=== PATIENT | male | born 1985 | race Caucasian/White ===

== ENCOUNTER 2019-01-12 11:45 | Emergency (ER) | payer OTHER ==
[~2019-01-12] VITALS: Ht 190.5 cm; Wt 127.3 kg
[2019-01-12 11:50] VITALS: TEMP 97.7
[2019-01-12 12:29] LABS: BASO # 0.1 (0.0-0.2); BASO % 1.1 % (0.0-2.0); EOS # 0.2 (0.0-0.7); EOS % 2.5 % (0-4.0); GRAN # 3.4 (1.4-6.5); GRAN % 48.4 % (42.2-75.2); LYMPH # 2.4 (1.2-3.4); LYMPH % 34.5 % (20.0-51.0); MEAN CELL VOLUME 84 fl (80.0-100.0); MEAN CORPUSCULAR HGB CONC 34 g/dl (33.0-37.0); MEAN PLATELET VOLUME 8.9 fl (7.4-10.4); MONO # 0.9 (0.1-0.6); MONO % 13.1 % (1.7-9.3); PLATELET COUNT 208 K/mm3 (130-400); RED BLOOD COUNT 6.26 M/mm3 (4.20-5.60); REDCELL DISTRIBUTION WIDTH-CV 12.2 % (11.5-14.5)
[2019-01-12 12:35] LABS: HEMATOCRIT 52.6 % (42.0-52.0); HEMOGLOBIN 18.1 g/dl (13.5-18.0); MEAN CORPUSCULAR HEMOGLOBIN 29 pg (27.0-31.0)
[2019-01-12 12:41] LABS: ALANINE AMINOTRANSFERASE 24 U/L (21-72); ALBUMIN 4.5 gm/dL (3.5-5.0); ALKALINE PHOSPHATASE 85 U/L (50-136); ANION GAP 13 mmol/L (7-16); AST,SGOT 26 U/L (15-37); BILIRUBIN,TOTAL 0.5 mg/dL (0.0-1.0); BLOOD UREA NITROGEN 17 mg/dL (9-20); C-REACTIVE PROTEIN 0.6 mg/dL (0.0-0.9); CALCIUM 9.2 mg/dL (8.4-10.2); CARBON DIOXIDE 21 mmol/L (22-30); CHLORIDE 105 mmol/L (98-107); CREATININE, serum 1.02 (0.66-1.25); GLUCOSE 95 mg/dL (74-106); LIPASE 65 U/L (23-300); POTASSIUM 3.6 mmol/L (3.4-5.0); SODIUM 139 mmol/L (137-145); TOTAL PROTEIN 7.6 gm/dL (6.4-8.2)
[2019-01-12] MEDS ORDERED: BUSPAR5 MG PO (12:46)
[2019-01-12] MEDS ORDERED: ZYBAN150 M1 (12:46)
[2019-01-12] MEDS ORDERED: LYRICA 75MG CAP75 MG PO (12:47)
[2019-01-12] MEDS ORDERED: CYMBALTA 60MG60 MG PO (12:47)
[2019-01-12] MEDS ORDERED: PROTONIX 40MG T40 MG PO (12:48)
[2019-01-12] MEDS ORDERED: DESYREL 100MG100 MG PO (12:48)
[2019-01-12] MEDS ORDERED: REGLAN 10MG10 MG/TAB PO (12:48)
[2019-01-12] MEDS ORDERED: HYTRIN 2MG CAPSU2 MG PO (12:49)
[2019-01-12] MEDS ORDERED: PRINIVIL20 MG PO (12:49)
[2019-01-12] MEDS ORDERED: ULTRAM 50MG TAB50 MG PO ×2 (12:50→13:08)
[2019-01-12 12:53] LABS: TROPONIN-I < 0.012 ng/mL (0.000-0.035)
[2019-01-12] MEDS ORDERED: ZOFRAN ODT4 MG PO (13:03)
[2019-01-12] MEDS ORDERED: ZESTRIL 20MG TA20 MG PO (13:08)
[2019-01-12 13:15] LABS: SALICYLATE 6.1 mg/dL
[2019-01-12 13:16] LABS: ACETAMINOPHEN < 10 ug/mL (10-30); ALCOHOL(ethanol),MEDICAL < 10 mg/dL
[2019-01-12 17:08] VITALS: BP 135/98; PULSE 89
== END 2019-01-12 17:08 | disposition home or self-care (01) ==
LOC: COL.ER 11:45
PROVIDERS: Emergency Medicine
DX: I10 Essential (primary) hypertension (principal)
CPT/HCPCS: J2270; J2405; J7030

== ENCOUNTER 2019-04-16 23:49 | Emergency (ER) | payer SELFPAY ==
[~2019-04-16] VITALS: Ht 193 cm; Wt 127.3 kg
[~2019-04-16 23:49] MED LIST: BUSPAR5 MG PO; CYMBALTA 60MG60 MG PO; DESYREL 100MG100 MG PO; HYTRIN 2MG CAPSU2 MG PO; LYRICA 75MG CAP75 MG PO; PRINIVIL20 MG PO; PROTONIX 40MG T40 MG PO; REGLAN 10MG10 MG/TAB PO; ULTRAM 50MG TAB50 MG PO; ZESTRIL 20MG TA20 MG PO; ZOFRAN ODT4 MG PO; ZYBAN150 M1
[2019-04-16 23:57] VITALS: TEMP 97.7
[2019-04-17 01:03] LABS: ALANINE AMINOTRANSFERASE 41 U/L (21-72); ALBUMIN 4.5 gm/dL (3.5-5.0); ALKALINE PHOSPHATASE 97 U/L (50-136); ANION GAP 13 mmol/L (7-16); AST,SGOT 31 U/L (15-37); BASO # 0.1 (0.0-0.2); BASO % 0.7 % (0.0-2.0); BILIRUBIN,TOTAL 0.4 mg/dL (0.0-1.0); BLOOD UREA NITROGEN 18 mg/dL (9-20); CALCIUM 9.3 mg/dL (8.4-10.2); CARBON DIOXIDE 21 mmol/L (22-30); CHLORIDE 107 mmol/L (98-107); EOS # 0.1 (0.0-0.7); EOS % 1.7 % (0-4.0); GLUCOSE 133 mg/dL (74-106); GRAN # 4.6 (1.4-6.5); GRAN % 64.9 % (42.2-75.2); LYMPH # 1.8 (1.2-3.4); LYMPH % 25.7 % (20.0-51.0); MEAN CELL VOLUME 84 fl (80.0-100.0); MEAN CORPUSCULAR HGB CONC 34 g/dl (33.0-37.0); MEAN PLATELET VOLUME 9.3 fl (7.4-10.4); MONO # 0.5 (0.1-0.6); MONO % 6.6 % (1.7-9.3); PLATELET COUNT 222 K/mm3 (130-400); POTASSIUM 3.7 mmol/L (3.4-5.0); RED BLOOD COUNT 6.27 M/mm3 (4.20-5.60); REDCELL DISTRIBUTION WIDTH-CV 12.8 % (11.5-14.5); SODIUM 141 mmol/L (137-145); TOTAL PROTEIN 7.5 gm/dL (6.4-8.2)
[2019-04-17 01:08] LABS: HEMATOCRIT 52.9 % (42.0-52.0); HEMOGLOBIN 18.1 g/dl (13.5-18.0); MEAN CORPUSCULAR HEMOGLOBIN 29 pg (27.0-31.0)
[2019-04-17 01:16] LABS: TROPONIN-I < 0.012 ng/mL (0.000-0.035)
[2019-04-17] MEDS ORDERED: PRINIVIL20 MG PO (01:53)
[2019-04-17 01:59] LABS: PROTHROMBIN TIME 11.4 SECONDS (9.7-12.8)
[2019-04-17 03:40] VITALS: BP 151/76; PULSE 113
== END 2019-04-17 03:40 | disposition home or self-care (01) ==
LOC: COL.ER 23:49
PROVIDERS: Emergency Medicine
DX: I10 Essential (primary) hypertension (principal); K21.9 Gastro-esophageal reflux disease without esophagitis

== ENCOUNTER 2019-04-22 01:36 | Emergency (ER) | payer SELFPAY ==
[~2019-04-22] VITALS: Ht 190.5 cm; Wt 127.3 kg
[2019-04-22 01:38] VITALS: TEMP 97.5
[2019-04-22 02:47] VITALS: BP 156/124; PULSE 93
== END 2019-04-22 02:47 | disposition home or self-care (01) ==
LOC: COL.ER 01:36
DX: R52 Pain, unspecified (principal); I10 Essential (primary) hypertension
CPT/HCPCS: J1170; J2360

== ENCOUNTER 2019-04-25 13:54 | Emergency (ER) | payer SELFPAY ==
[~2019-04-25] VITALS: Ht 190.5 cm; Wt 127.3 kg
[2019-04-25 14:06] VITALS: BP 161/115; TEMP 97.9
[2019-04-25] MEDS ORDERED: LYRICA 75MG CAP75 MG PO (15:56)
[2019-04-25] MEDS ORDERED: PRINIVIL20 MG PO (15:56)
[2019-04-25 16:37] VITALS: PULSE 96
== END 2019-04-25 16:37 | disposition home or self-care (01) ==
LOC: COL.ER 13:54
DX: M54.2 Cervicalgia (principal); G89.29 Other chronic pain; F32.9 Major depressive disorder, single episode, unspecified; F41.9 Anxiety disorder, unspecified; I10 Essential (primary) hypertension; M54.6 Pain in thoracic spine
CPT/HCPCS: J2270; J2550; J3010

== ENCOUNTER 2019-05-07 10:33 | Emergency (ER) | payer SELFPAY ==
[~2019-05-07] VITALS: Ht 190.5 cm; Wt 127.3 kg
[2019-05-07 10:40] VITALS: TEMP 97.8
[2019-05-07 11:24] LABS: BASO # 0.1 (0.0-0.2); BASO % 0.8 % (0.0-2.0); EOS # 0.1 (0.0-0.7); EOS % 1.7 % (0-4.0); GRAN # 4.8 (1.4-6.5); LYMPH % 26.7 % (20.0-51.0); MEAN CELL VOLUME 83 fl (80.0-100.0); MEAN CORPUSCULAR HGB CONC 34 g/dl (33.0-37.0); MEAN PLATELET VOLUME 8.7 fl (7.4-10.4); MONO # 0.6 (0.1-0.6); MONO % 7.5 % (1.7-9.3); PLATELET COUNT 202 K/mm3 (130-400); RED BLOOD COUNT 6.71 M/mm3 (4.20-5.60); REDCELL DISTRIBUTION WIDTH-CV 12.8 % (11.5-14.5)
[2019-05-07 11:25] LABS: HEMATOCRIT 55.7 % (42.0-52.0); HEMOGLOBIN 19.1 g/dl (13.5-18.0); MEAN CORPUSCULAR HEMOGLOBIN 28 pg (27.0-31.0)
[2019-05-07 11:37] LABS: ALANINE AMINOTRANSFERASE 42 U/L (21-72); ALBUMIN 4.8 gm/dL (3.5-5.0); ALKALINE PHOSPHATASE 90 U/L (50-136); ANION GAP 11 mmol/L (7-16); AST,SGOT 27 U/L (15-37); BILIRUBIN,TOTAL 0.6 mg/dL (0.0-1.0); BLOOD UREA NITROGEN 16 mg/dL (9-20); CALCIUM 9.7 mg/dL (8.4-10.2); CARBON DIOXIDE 26 mmol/L (22-30); CHLORIDE 105 mmol/L (98-107); CREATININE, serum 1.13 (0.66-1.25); GLUCOSE 94 mg/dL (74-106); POTASSIUM 3.7 mmol/L (3.4-5.0); SODIUM 141 mmol/L (137-145)
[2019-05-07 11:44] LABS: ACETAMINOPHEN < 10 ug/mL (10-30); ALCOHOL(ethanol),MEDICAL < 10 mg/dL; C-REACTIVE PROTEIN < 0.5 mg/dL (0.0-0.9); SALICYLATE < 1.0 mg/dL
[2019-05-07 12:41] LABS: TRICYCLIC ANTIDEPRESS URINE NEGATIVE
[2019-05-07 12:45] VITALS: BP 171/104
[2019-05-07] MEDS ORDERED: PRINZIDE 12.5 M1 TAB PO (13:42)
[2019-05-07 13:45] VITALS: PULSE 90
[2019-05-07 22:42] LABS: COLLECTION METHOD CLEAN CATCH
[2019-05-07 23:15] LABS: MUCOUS Present /lpf; PH 6 (5-8); SQUAMOUS EPITHELIAL 0-2 /hpf; URINE APPEARANCE Clear; URINE BACTERIA None Seen /hpf; URINE BILIRUBIN Negative (NEGATIVE); URINE BLOOD Negative (NEGATIVE); URINE COLOR Yellow; URINE GLUCOSE Negative (NEGATIVE); URINE KETONE Negative (NEGATIVE); URINE LEUKOCYTE ESTERASE Negative (NEGATIVE); URINE NITRATE Negative (NEGATIVE); URINE PROTEIN(semi-quant) Negative (NEGATIVE); URINE RBC 0-2 /hpf; URINE UROBILINOGEN Negative (NEGATIVE)
== END 2019-05-07 13:45 | disposition home or self-care (01) ==
LOC: COL.ER 10:33
PROVIDERS: Family Medicine
DX: F32.9 Major depressive disorder, single episode, unspecified (principal); I10 Essential (primary) hypertension

== ENCOUNTER → 2019-09-27 | Outpatient (CLI) | payer MEDICARE, MEDICAID ==
[~2019-09-27] MED LIST changes: +PRINZIDE 12.5 M1 TAB PO
== END ==
LOC: COL.RAD 07:11
DX: C71.9 Malignant neoplasm of brain, unspecified (principal)
CPT/HCPCS: A9585

== ENCOUNTER 2019-11-08 08:11 | Outpatient (RCR) | payer MEDICARE, MEDICAID ==
[2019-12-04] MEDS ORDERED: VOLTAREN GEL 1%1 TU TP (03:48)
[2019-12-04] MEDS ORDERED: FLEXERIL 1010 MG/TAB PO ×2 (03:53)
[2019-12-04] MEDS ORDERED: ULTRAM 50MG TAB50 MG PO (03:55)
[2019-12-04] MEDS ORDERED: PRINIVIL20 MG PO (03:56)
[2019-12-04] MEDS ORDERED: HYTRIN 2MG CAPSU2 MG PO (03:56)
[2019-12-04] MEDS ORDERED: REGLAN 10MG10 MG/TAB PO (03:58)
[2019-12-04] MEDS ORDERED: LYRICA 75MG CAP75 MG PO (04:02)
[2019-12-04] MEDS ORDERED: PROTONIX 40MG T40 MG PO (04:02)
[2019-12-04] MEDS ORDERED: CYMBALTA 60MG60 MG PO (04:03)
[2019-12-04] MEDS ORDERED: BUSPAR5 MG PO (04:03)
== END 2020-01-10 10:20 | disposition home or self-care (01) ==
LOC: MKS.ESL.PT 08:11
DX: M79.671 Pain in right foot (principal)

== ENCOUNTER 2019-12-04 03:20 | Emergency (ER) | payer MEDICARE, MEDICAID ==
[~2019-12-04] VITALS: Ht 190.5 cm; Wt 121.8 kg
[2019-12-04] MEDS ORDERED: VOLTAREN GEL 1%1 TU TP (03:48)
[2019-12-04] MEDS ORDERED: FLEXERIL 1010 MG/TAB PO ×2 (03:53)
[2019-12-04] MEDS ORDERED: ULTRAM 50MG TAB50 MG PO (03:55)
[2019-12-04] MEDS ORDERED: HYTRIN 2MG CAPSU2 MG PO (03:56)
[2019-12-04] MEDS ORDERED: PRINIVIL20 MG PO (03:56)
[2019-12-04] MEDS ORDERED: REGLAN 10MG10 MG/TAB PO (03:58)
[2019-12-04] MEDS ORDERED: PROTONIX 40MG T40 MG PO (04:02)
[2019-12-04] MEDS ORDERED: LYRICA 75MG CAP75 MG PO (04:02)
[2019-12-04] MEDS ORDERED: BUSPAR5 MG PO (04:03)
[2019-12-04] MEDS ORDERED: CYMBALTA 60MG60 MG PO (04:03)
[2019-12-04 04:20] VITALS: BP 137/91; PULSE 88; TEMP 98
== END 2019-12-04 03:43 | disposition home or self-care (01) ==
LOC: COL.ER 03:20
DX: M79.671 Pain in right foot (principal)

== ENCOUNTER → 2019-12-13 | Outpatient (CLI) | payer MEDICARE, MEDICAID ==
[~2019-12-13] MED LIST changes: +FLEXERIL 1010 MG/TAB PO; +VOLTAREN GEL 1%1 TU TP
== END ==
LOC: ZCOL.LAB 16:08
DX: R53.83 Other fatigue (principal); Z20.828 Contact with and (suspected) exposure to other viral communicable diseases

== ENCOUNTER 2020-02-10 09:30 | Outpatient (RCR) | payer MEDICARE, MEDICAID ==
[2020-03-23] MEDS ORDERED: NORCO 325 MG-101 TAB PO (07:49)
[2020-03-23] MEDS ORDERED: LUVOX 50MG50 MG/TAB PO (07:49)
== END 2020-03-25 13:10 | disposition home or self-care (01) ==
LOC: WSOT 09:30
DX: M25.542 Pain in joints of left hand (principal)

== ENCOUNTER → 2020-02-14 | Emergency (ER) | payer MEDICARE, MEDICAID ==
[~2020-02-14] VITALS: Ht 190.5 cm; Wt 122.7 kg
[2020-02-14 13:27] VITALS: TEMP 97.5
[2020-02-14 15:24] VITALS: BP 100/62; PULSE 68
== END ==
LOC: COL.ER 13:25
DX: I95.9 Hypotension, unspecified (principal); T42.8X5A Adverse effect of antiparkinsonism drugs and other central muscle-tone depressants, initial encounter; F32.9 Major depressive disorder, single episode, unspecified; F41.9 Anxiety disorder, unspecified
CPT/HCPCS: J7030

== ENCOUNTER 2020-03-02 11:15 | Outpatient (RCR) | payer MEDICARE, MEDICAID ==
[2020-03-23] MEDS ORDERED: NORCO 325 MG-101 TAB PO (07:49)
[2020-03-23] MEDS ORDERED: LUVOX 50MG50 MG/TAB PO (07:49)
== END 2020-04-02 14:32 | disposition home or self-care (01) ==
LOC: WSC 11:15
DX: M79.7 Fibromyalgia (principal); F32.9 Major depressive disorder, single episode, unspecified

== ENCOUNTER 2020-03-23 07:25 | Emergency (ER) | payer MEDICARE, MEDICAID ==
[~2020-03-23] VITALS: Ht 190.5 cm; Wt 127.3 kg
[2020-03-23 07:34] VITALS: TEMP 97.7
[2020-03-23] MEDS ORDERED: NORCO 325 MG-101 TAB PO (07:49)
[2020-03-23] MEDS ORDERED: LUVOX 50MG50 MG/TAB PO (07:49)
[2020-03-23 08:10] LABS: BASO % 0.5 % (0.0-2.0); EOS % 0.1 % (0-4.0); GRAN # 6.6 (1.4-6.5); GRAN % 81.1 % (42.2-75.2); HEMOGLOBIN 17.3 g/dl (13.5-18.0); LYMPH # 1.2 (1.2-3.4); LYMPH % 14.5 % (20.0-51.0); MEAN CELL VOLUME 86 fl (80.0-100.0); MEAN CORPUSCULAR HEMOGLOBIN 28 pg (27.0-31.0); MEAN CORPUSCULAR HGB CONC 33 g/dl (33.0-37.0); MEAN PLATELET VOLUME 9.3 fl (7.4-10.4); MONO # 0.3 (0.1-0.6); MONO % 3.4 % (1.7-9.3); PLATELET COUNT 248 K/mm3 (130-400); RED BLOOD COUNT 6.09 M/mm3 (4.20-5.60)
[2020-03-23 08:12] LABS: HEMATOCRIT 52.4 % (42.0-52.0)
[2020-03-23 08:30] LABS: ALANINE AMINOTRANSFERASE 29 U/L (4-49); ALBUMIN 4.7 gm/dL (3.5-5.0); ALKALINE PHOSPHATASE 77 U/L (50-136); ANION GAP 11 mmol/L (7-16); AST,SGOT 32 U/L (15-37); BILIRUBIN,TOTAL 0.5 mg/dL (0.0-1.0); BLOOD UREA NITROGEN 19 mg/dL (9-20); C-REACTIVE PROTEIN < 0.5 mg/dL (0.0-0.9); CALCIUM 9.4 mg/dL (8.4-10.2); CARBON DIOXIDE 21 mmol/L (22-30); CHLORIDE 106 mmol/L (98-107); CREATININE, serum 1.08 (0.66-1.25); GLUCOSE 142 mg/dL (74-106); POTASSIUM 4.8 mmol/L (3.4-5.0); SODIUM 138 mmol/L (137-145); TOTAL PROTEIN 7.7 gm/dL (6.4-8.2)
[2020-03-23 09:10] VITALS: BP 127/74; PULSE 88
== END 2020-03-23 09:10 | disposition home or self-care (01) ==
LOC: COL.ER 07:25
PROVIDERS: Family Medicine
DX: G89.29 Other chronic pain (principal); F41.9 Anxiety disorder, unspecified; Z79.899 Other long term (current) drug therapy

== ENCOUNTER 2020-03-27 03:21 | Emergency (ER) | payer MEDICARE, MEDICAID ==
[~2020-03-27] VITALS: Ht 193 cm; Wt 127.3 kg
[~2020-03-27 03:21] MED LIST changes: +LUVOX 50MG50 MG/TAB PO; +NORCO 325 MG-101 TAB PO
[2020-03-27 03:31] VITALS: TEMP 97.1
[2020-03-27 05:05] LABS: COLLECTION METHOD CLEAN CATCH
[2020-03-27 05:11] LABS: MUCOUS Present /lpf; PH 6 (5-8); SQUAMOUS EPITHELIAL 0-2 /hpf; URINE APPEARANCE Hazy; URINE BACTERIA Rare /hpf; URINE BILIRUBIN Negative (NEGATIVE); URINE BLOOD Negative (NEGATIVE); URINE COLOR Yellow; URINE GLUCOSE Negative (NEGATIVE); URINE KETONE Negative (NEGATIVE); URINE LEUKOCYTE ESTERASE Negative (NEGATIVE); URINE NITRATE Negative (NEGATIVE); URINE PROTEIN(semi-quant) Negative (NEGATIVE); URINE RBC 0-2 /hpf
[2020-03-27 06:17] VITALS: BP 141/86; PULSE 94
== END 2020-03-27 07:00 | disposition home or self-care (01) ==
LOC: COL.ER 03:21
PROVIDERS: Emergency Medicine
DX: F41.9 Anxiety disorder, unspecified (principal); F32.9 Major depressive disorder, single episode, unspecified; G89.29 Other chronic pain; F84.0 Autistic disorder; Z85.841 Personal history of malignant neoplasm of brain

== ENCOUNTER 2020-05-10 18:20 | Emergency (ER) | payer MEDICARE, MEDICAID ==
[~2020-05-10] VITALS: Ht 193 cm; Wt 127.3 kg
[2020-05-10 18:24] VITALS: TEMP 98.6
[2020-05-10 19:05] VITALS: BP 132/84; PULSE 98
== END 2020-05-10 19:05 | disposition home or self-care (01) ==
LOC: COL.ER 18:20
DX: G89.29 Other chronic pain (principal); I10 Essential (primary) hypertension; Z76.0 Encounter for issue of repeat prescription; F41.9 Anxiety disorder, unspecified; F32.9 Major depressive disorder, single episode, unspecified; Z85.841 Personal history of malignant neoplasm of brain; Z87.891 Personal history of nicotine dependence

== ENCOUNTER 2020-06-09 16:09 | Emergency (ER) | payer MEDICARE, MEDICAID ==
[~2020-06-09] VITALS: Ht 190.5 cm; Wt 127.3 kg
[2020-06-09 16:32] VITALS: BP 93/61; TEMP 96.9
[2020-06-09 18:25] VITALS: PULSE 89
== END 2020-06-09 18:22 | disposition home or self-care (01) ==
LOC: COL.ER 16:09
DX: G89.29 Other chronic pain (principal); I10 Essential (primary) hypertension; Z87.891 Personal history of nicotine dependence

== ENCOUNTER 2020-10-05 00:39 | Emergency (ER) | payer MEDICARE, MEDICAID ==
[~2020-10-05] VITALS: Ht 193 cm; Wt 124.5 kg
[2020-10-05] MEDS ORDERED: ZYLOPRIM 100MG100 MG PO (01:10)
[2020-10-05 01:12] LABS: BASO # 0.1 (0.0-0.2); BASO % 0.6 % (0.0-2.0); EOS # 0.1 (0.0-0.7); EOS % 1.1 % (0-4.0); GRAN # 5.1 (1.4-6.5); GRAN % 65.1 % (42.2-75.2); HEMATOCRIT 51.4 % (42.0-52.0); HEMOGLOBIN 17.5 g/dl (13.5-18.0); LYMPH # 1.7 (1.2-3.4); LYMPH % 22.1 % (20.0-51.0); MEAN CELL VOLUME 83 fl (80.0-100.0); MEAN CORPUSCULAR HEMOGLOBIN 28 pg (27.0-31.0); MEAN CORPUSCULAR HGB CONC 34 g/dl (33.0-37.0); MEAN PLATELET VOLUME 9.2 fl (7.4-10.4); MONO # 0.9 (0.1-0.6); MONO % 10.8 % (1.7-9.3); PLATELET COUNT 201 K/mm3 (130-400); RED BLOOD COUNT 6.18 M/mm3 (4.20-5.60); REDCELL DISTRIBUTION WIDTH-CV 12.7 % (11.5-14.5)
[2020-10-05 01:27] LABS: ALBUMIN 4.6 gm/dL (3.5-5.0); BILIRUBIN,TOTAL 0.3 mg/dL (0.0-1.0); CALCIUM 9.1 mg/dL (8.4-10.2); CREATININE, serum 1.08 (0.66-1.25); POTASSIUM 4.2 mmol/L (3.4-5.0); TOTAL PROTEIN 7.8 gm/dL (6.4-8.2)
[2020-10-05] MEDS ORDERED: PEPCID 20MG TAB20 MG PO (01:44)
[2020-10-05] MEDS ORDERED: BENTYL 10MG10 MG/CAP PO (01:44)
[2020-10-05 02:09] VITALS: BP 140/96; PULSE 81; TEMP 97.7
== END 2020-10-05 02:03 | disposition home or self-care (01) ==
LOC: COL.ER 00:39
PROVIDERS: Emergency Medicine
DX: R10.10 Upper abdominal pain, unspecified (principal); G89.29 Other chronic pain
CPT/HCPCS: J7030

== ENCOUNTER 2020-10-25 01:49 | Emergency (ER) | payer MEDICARE, MEDICAID ==
[~2020-10-25] VITALS: Ht 190.5 cm; Wt 127.3 kg
[~2020-10-25 01:49] MED LIST changes: +BENTYL 10MG10 MG/CAP PO; +PEPCID 20MG TAB20 MG PO; +ZYLOPRIM 100MG100 MG PO
[2020-10-25] MEDS ORDERED: PREDNISONE20 MG PO (03:06)
[2020-10-25 03:59] VITALS: BP 137/71; PULSE 80; TEMP 98.4
== END 2020-10-25 04:00 | disposition home or self-care (01) ==
LOC: COL.ER 01:49
DX: G89.29 Other chronic pain (principal); M79.671 Pain in right foot; I10 Essential (primary) hypertension; Z79.899 Other long term (current) drug therapy
CPT/HCPCS: J1100; J2270

== ENCOUNTER 2020-10-28 21:52 | Emergency (ER) | payer MEDICARE, MEDICAID ==
[~2020-10-28] VITALS: Ht 190.5 cm; Wt 122.7 kg
[~2020-10-28 21:52] MED LIST changes: +PREDNISONE20 MG PO
[2020-10-28 23:05] VITALS: BP 150/105; PULSE 85; TEMP 98
== END 2020-10-28 23:05 | disposition home or self-care (01) ==
LOC: COL.ER 21:52
DX: R51.9 Headache, unspecified (principal); I10 Essential (primary) hypertension; G89.29 Other chronic pain; F32.9 Major depressive disorder, single episode, unspecified; Z79.899 Other long term (current) drug therapy; Z87.891 Personal history of nicotine dependence

== ENCOUNTER 2020-11-19 22:05 | Emergency (ER) | payer MEDICARE, MEDICAID ==
[~2020-11-19] VITALS: Ht 193 cm; Wt 127.3 kg
[2020-11-20 00:49] VITALS: BP 139/95; PULSE 89; TEMP 98
== END 2020-11-20 00:49 | disposition home or self-care (01) ==
LOC: COL.ER 22:05
DX: M79.671 Pain in right foot (principal); G89.29 Other chronic pain; I10 Essential (primary) hypertension; Z87.891 Personal history of nicotine dependence; Z79.899 Other long term (current) drug therapy

== ENCOUNTER 2020-12-21 00:32 | Emergency (ER) | payer MEDICARE, MEDICAID ==
[~2020-12-21] VITALS: Ht 188 cm; Wt 113.6 kg
[~2020-12-21 00:32] MED LIST changes: +ULTRAM ER200 MG PO
[2020-12-21 02:12] VITALS: BP 133/84; PULSE 89; TEMP 98.3
== END 2020-12-21 02:12 | disposition home or self-care (01) ==
LOC: COL.ER 00:32
DX: S52.121A Displaced fracture of head of right radius, initial encounter for closed fracture (principal); S40.211A Abrasion of right shoulder, initial encounter; S50.311A Abrasion of right elbow, initial encounter; M25.531 Pain in right wrist; I10 Essential (primary) hypertension; F84.0 Autistic disorder; Z85.841 Personal history of malignant neoplasm of brain; Z79.899 Other long term (current) drug therapy; V00.831A Fall from motorized mobility scooter, initial encounter
CPT/HCPCS: A4565; J1885

== ENCOUNTER 2021-02-01 23:38 | Emergency (ER) | payer MEDICARE, MEDICAID ==
[~2021-02-01] VITALS: Ht 190.5 cm; Wt 127.3 kg
[2021-02-01 23:51] VITALS: TEMP 99.1
[2021-02-02 01:30] VITALS: BP 131/81; PULSE 89
== END 2021-02-02 01:30 | disposition home or self-care (01) ==
LOC: COL.ER 23:38
DX: J06.9 Acute upper respiratory infection, unspecified (principal); F84.0 Autistic disorder; Z20.822 Contact with and (suspected) exposure to COVID-19; Z85.841 Personal history of malignant neoplasm of brain; Z98.890 Other specified postprocedural states

== ENCOUNTER 2021-04-29 16:05 | Emergency (ER) | payer MEDICARE, MEDICAID ==
[~2021-04-29] VITALS: Ht 193 cm; Wt 127.3 kg
[2021-04-29 16:27] VITALS: TEMP 97.8
[2021-04-29] MEDS ORDERED: PEPCID 20MG TAB20 MG PO (16:33)
[2021-04-29] MEDS ORDERED: LYRICA 75MG CAP75 MG PO (16:34)
[2021-04-29] MEDS ORDERED: REGLAN 5MG T5 MG/TAB (16:36)
[2021-04-29] MEDS ORDERED: ZOFRAN ODT4 MG PO (16:36)
[2021-04-29 17:04] LABS: BASO # 0.1 K/mm3 (0.0-0.2); EOS # 0.1 K/mm3 (0.0-0.7); EOS % 1.6 % (0-4.0); GRAN # 3.7 K/mm3 (1.4-6.5); GRAN % 53.3 % (42.2-75.2); HEMATOCRIT 48.2 % (42.0-52.0); HEMOGLOBIN 16.7 g/dl (13.5-18.0); LYMPH # 2.3 K/mm3 (1.2-3.4); LYMPH % 32.7 % (20.0-51.0); MEAN CELL VOLUME 83 fl (80.0-100.0); MEAN CORPUSCULAR HEMOGLOBIN 29 pg (27.0-31.0); MEAN CORPUSCULAR HGB CONC 35 g/dl (33.0-37.0); MONO # 0.8 K/mm3 (0.1-0.6); MONO % 11.1 % (1.7-9.3); PLATELET COUNT 211 K/mm3 (130-400); RED BLOOD COUNT 5.82 M/mm3 (4.20-5.60)
[2021-04-29 17:22] LABS: ALBUMIN 4.4 gm/dL (3.5-5.0); BILIRUBIN,TOTAL 0.4 mg/dL (0.2-1.2); CALCIUM 9.2 mg/dL (8.4-10.2); CREATININE, serum 1.17 mg/dL (0.72-1.25); POTASSIUM 4.4 mmol/L (3.5-4.5); TOTAL PROTEIN 7.4 gm/dL (6.2-8.1)
[2021-04-29 19:33] VITALS: BP 125/91; PULSE 82
== END 2021-04-29 19:33 | disposition home or self-care (01) ==
LOC: COL.ER 16:05
PROVIDERS: Student in an Organized Health Care Education/Training Program
DX: R10.84 Generalized abdominal pain (principal); I10 Essential (primary) hypertension; Z87.891 Personal history of nicotine dependence; Z79.899 Other long term (current) drug therapy
CPT/HCPCS: Q9967

== ENCOUNTER → 2021-08-19 | Outpatient (CLI) | payer MEDICARE, MEDICAID ==
[~2021-08-19] MED LIST changes: +REGLAN 5MG T5 MG/TAB
== END ==
LOC: COL.RAD 07:01
DX: G93.89 Other specified disorders of brain (principal); D33.0 Benign neoplasm of brain, supratentorial; M54.17 Radiculopathy, lumbosacral region; G62.9 Polyneuropathy, unspecified; R29.2 Abnormal reflex
CPT/HCPCS: A9575

== ENCOUNTER → 2021-08-20 | Outpatient (CLI) | payer MEDICARE, MEDICAID | LOC: COL.RAD 06:57 | DX: M47.26 Other spondylosis with radiculopathy, lumbar region (principal); M48.07 Spinal stenosis, lumbosacral region; Z85.841 Personal history of malignant neoplasm of brain | CPT/HCPCS: A9575 ==

== ENCOUNTER 2023-08-01 01:55 | Emergency (ER) | payer MEDICARE, MEDICAID ==
[~2023-08-01] VITALS: Ht 193 cm; Wt 125.0 kg
[~2023-08-01 01:55] MED LIST changes: +PRIL40 PO
[2023-08-01 02:10] VITALS: BP 133/75; TEMP 97.5
[2023-08-01 03:07] VITALS: PULSE 67
== END 2023-08-01 03:08 | disposition home or self-care (01) ==
LOC: COL.ER 01:55
DX: S61.012A Laceration without foreign body of left thumb without damage to nail, initial encounter (principal); Z23 Encounter for immunization; W26.0XXA Contact with knife, initial encounter

== ENCOUNTER → 2023-08-16 | Outpatient (CLI) | payer MEDICARE, MEDICAID ==
[~2023-08-16] MED LIST changes: +Gadoterate 20 ML VIAL IV ONE
== END ==
LOC: COL.RAD 08:12
DX: C71.1 Malignant neoplasm of frontal lobe (principal); Z98.890 Other specified postprocedural states
CPT/HCPCS: A9575